=== PATIENT | female | born 1945 | race Caucasian/White ===

== ENCOUNTER → 2024-08-07 11:58 | Outpatient (REF) | payer MEDICARE, MEDICAID, SELFPAY | LOC: WDC 11:58 | PROVIDERS: ATTENDING PHYSICIAN Internal Medicine | DX: Z12.31 Encounter for screening mammogram for malignant neoplasm of breast (principal) | CPT/HCPCS: 77063; 77067 ==

== ENCOUNTER 2024-09-09 15:49 | Emergency (ER) | payer MEDICARE, MEDICAID, SELFPAY ==
[2024-09-09 16:00] VITALS: BP 127/70
[2024-09-09 16:10] VITALS: BMI 21.5
[2024-09-09 16:29] LABS: % Basophils 0.5 % (0-2); % Eosinophils 0.9 % (0-6); % Immature Granulocytes 0.8 % (0-0.5); % Lymphocytes 19.6 % (20.5-51.1); % Monocytes 10.7 % (1.7-9.3); % Neutrophils 67.5 % (42.2-75.2); Absolute Basophils 0.1 10^3/uL (0-0.2); Absolute Eosinophils 0.1 10^3/uL (0-0.7); Absolute Immature Granulocytes 0.1 10^3/uL (0-0.05); Absolute Lymphocytes 1.9 10^3/uL (1.2-3.4); Absolute Monocytes 1.1 10^3/uL (0.1-0.6); Absolute Neutrophils 6.6 10^3/uL (1.4-6.5); Hemoglobin 10.9 g/dL (12.0-16.0); Mean Corpuscular Hgb 31.2 pg (27.0-31.0); Mean Corpuscular Volume 94.6 fL (81.0-99.0); Mean Platelet Volume 9.6 fL (7.4-10.4); Nucleated Red Blood Cells % 0 %; Platelet Count 336 10^3/uL (130-400); Red Blood Cell Count 3.49 10^6/uL (4.20-5.40); Red Cell Dist. Width 13.5 % (11.5-14.5); White Blood Cell Count 9.8 10^3/uL (4.8-10.8)
[2024-09-09 16:44] LABS: ALT (SGPT) 32 U/L (0-35); AST (SGOT) 23 U/L (14-36); Albumin 4.2 g/dl (3.5-5.0); Alkaline Phosphatase 95 U/L (38-126); Blood Urea Nitrogen 56 mg/dl (7-17); Carbon Dioxide 25 mmol/L (22-30); Chloride 102 mmol/L (98-107); Estimated Creatinine Clearance 33 ml/min; Glucose 106 mg/dl (70-99); Potassium 4.9 mmol/L (3.5-5.1); Sodium 140 mmol/L (135-145); Total Bilirubin < 0.1 mg/dl (0.2-1.3); Total Protein 6.7 g/dl (6.3-8.2); eGFR 57.66
[2024-09-09 16:52] LABS: NT-proBNP 89.1 pg/ml
[2024-09-09 17:00] VITALS: BP 93/64
[2024-09-09] MEDS: NSS 250 IV (17:30)
--- NOTE | 2024-09-09 17:38 | ED.GENMED ---
History of Present Illness
General
Chief Complaint: Swelling
Source: patient
Exam Limitations: none
Time Seen by Provider: 09/09/24 15:59
Nursing documentation reviewed up to this point in time: agreed with
History of Present Illness
History of Present Illness:
Patient with history of mental retardation, presents to the emergency department from nursing home, accompanied by her caregiver, secondary to depressed mental status along with low blood pressure this afternoon. However, at the time of evaluation
ED, patient is alert and awake, without any complaints. Caregiver confirms that patient currently is near her baseline mental status. Caregiver has known the patient for 12 years. Denies recent illness. Denies recent change in medications or
diet. In addition, caregiver reports increased lower leg and foot swelling, despite taking Lasix every other day. However, patient denies any shortness of breath, nor any weight gain, confirmed by caregiver. Patient has appointment with her
primary care physician tomorrow afternoon. Of note, caregiver states that patient has not been eating well, i.e. eating on a regular basis. In addition, patient does not drink much water during the day, which has always been challenging.
Past History
Past History
ED Past Medical History: Hypercholesterolemia and Other (Mental retardation)
ED Past Surgical History: Other (unknown)
Social History
Tobacco: Non-smoker
Alcohol: None
Drug: None
Living: other (shelter)
Review of Systems
Review of Systems
Allergies reviewed?: Yes
All Other Systems: ROS reviewed and negative except as documented in HPI and ROS
Constitutional: Reports no symptoms
EENT: Reports no symptoms
Respiratory: Reports no symptoms
Cardiac: Reports no symptoms
ABD/GI: Reports no symptoms
Musculoskeletal: Reports edema
Skin: Reports no symptoms
Neurological: Reports other (depressed mental status)
Phy Exam
Physical Exam
Physical Exam:
Physical Exam
General: no apparent distress, not acutely ill. afebrile
Head: nc/at. eomi
Neck: supple. no meningeal signs.
Heart: s1/s2 regular rate and rhythm, no murmur. equal radial pulses.
Lungs: no acute respiratory distress. clear bilaterally
Abdomen: normal bowel sounds. not tender.
Neuro: alert and oriented. no focal neurological deficits
Skin: no rash
Psychiatric: well kept. interactive and cooperative
Extremities: no edema. no calf tenderness.
Scores
Heart Failure Risk
Heart Failure Risk Score: Not Applicable
Course
Orders/Labs/Results
Orders:
Orders
09/09/24 16:13
Electrocardiogram (*1) Urgent
Reason for Study: Chest Pain
Cardiac Monitoring- Treatment ONCE
EKG- Treatment ONCE
IV Insert/Care/Rem.- Treatment PRN
09/09/24 16:20
Complete Blood Count/With Diff Urgent
Comprehensive Metabolic Panel Urgent
Pro-BNP [NT-proBNP] Urgent
09/09/24 17:12
0.9% Sodium Chloride 250 ml [Nss] 250 ml IV BOLUS
Abnormal Lab Results
09/09/24
16:20
RBC 3.49 L 10^6/uL
(4.20-5.40)
Hgb 10.9 L g/dL
(12.0-16.0)
Hct 33.0 L %
(37.0-47.0)
MCH 31.2 H pg
(27.0-31.0)
Abs Immat Gran (auto) 0.1 H 10^3/uL
(0-0.05)
Absolute Neuts (auto) 6.6 H 10^3/uL
(1.4-6.5)
Absolute Monos (auto) 1.1 H 10^3/uL
(0.1-0.6)
Immature Gran % 0.8 H %
(0-0.5)
Lymphocytes % 19.6 L %
(20.5-51.1)
Monocytes % 10.7 H %
(1.7-9.3)
BUN 56 H mg/dl
(7-17)
Glucose 106 H mg/dl
(70-99)
Total Bilirubin < 0.1 L mg/dl
(0.2-1.3)
09/09/24 16:20
09/09/24 16:20
Vital Signs
Initial and Last Documented VS:
Initial Vital Signs
Temp Pulse Resp BP Pulse Ox
98.7 F 82 16 127/70 97
09/09/24 16:00 09/09/24 16:00 09/09/24 16:00 09/09/24 16:00 09/09/24 16:00
Last Documented Vital Signs
Temp Pulse Resp BP Pulse Ox
98.7 F 90 21 115/67 98
09/09/24 16:00 09/09/24 18:30 09/09/24 18:30 09/09/24 18:01 09/09/24 18:30
MDM/Problems Addressed
MDM/Problems Addressed:
Patient with an unremarkable workup in ED, and remains alert, awake, and hemodynamically stable during extended course of observation ED. History and exam concerning for possible mild dehydration, causing patient's presenting symptoms. Otherwise,
patient does not appear to be in any distress.
Pt given IVF and meal, with much improved overall appearance. Pt has become more alert and conversation. Caregiver states that patient is back to her baseline mental status.
Patient already has an appointment with PMD tomorrow, with whom she will follow-up as an outpatient.
*Critical Care Note
Total Time (30-74mins, 75-104mins- exclusive of procedures): Not Applicable
ED Attending Note
-
Portions of this chart may have been created with voice recognition software.� Occasional wrong word or��sound alike� substitutions may have occurred due to the inherent limitations of voice recognition software.
Discharge Plan
Departure
Patient Disposition: Home (Routine Discharge)
Date of Disposition: 09/09/24
Time of Disposition: 18:34
Patient with high blood pressure during this ER visit?: Yes
Condition: Good
Discharge Problem:
Dehydration, Leg swelling
Instructions: Dependent Edema (DC), Dehydration, Adult ED
Prescriptions:
No Action
calcium carbonate [Antacid (calcium carbonate)] 1 TABLET tablet,chewable
1,000 mg PO QPM
One Daily Women 50 Plus 1 EACH tablet
1 ea PO DAILY
loperamide 2 MG capsule
4 mg PO PRN PRN (Reason: loose stool)
Patient Comments:
4mg after first loose stool, then 2mg after each subsequent stool-max 8/24hours
ketoconazole 1 APPLIC cream
1 applic topical HS
Patient Comments:
apply soles, sides of feet
Triple Antibiotic 1 EACH ointment in packet
1 ea TP TID PRN (Reason: cuts, abrasions)
cholecalciferol (vitamin D3) [Vitamin D3] 2,000 UNIT capsule
2,000 unit PO DAILY
carbamazepine 300 mg Capsule, Er Multiphase 12 Hr
300 mg PO BID
docosanol 10 % Cream
1 applic TOPICAL ONCE PRN (Reason: cold sore)
guaifenesin [Siltussin SA] 100 mg/5 mL Liquid
200 mg PO Q6H PRN (Reason: cough)
acetaminophen [Mapap Arthritis Pain] 650 mg Tablet Extended Release
650 mg PO DAILY
quinapril 10 mg Tablet
10 mg PO DAILY
famotidine 20 mg Tablet
20 mg PO BID
furosemide [Lasix] 20 mg Tablet
20 mg PO Q OTHER DAY
Peroxyl 1.5 % Solution
10 ml MUCOUS MEMBRANE DAILY
Rx Instructions:
rinse or wipe teeth with cotton ball
rosuvastatin 20 mg Tablet
20 mg PO DAILY
Prolia 60 mg/mL Syringe
60 mg SC [id number]
Fiber One
1 tab PO DAILY
Patient Comments:
brownie
acetaminophen 325 MG tablet
650 mg PO Q4H PRN (Reason: fever/pain)
polyethylene glycol 3350 [Miralax] 17 gram Powder In Packet
17 g PO DAILY PRN (Reason: No BM x 3 days )
Referrals:
UNKNOWN - PT NOT,INTERVIEWE [Unknown Provider] -
Activity Restrictions/Additional Instructions:
As discussed, please follow-up with your primary care physician tomorrow, as scheduled for further evaluation and treatment.
Interventions
Interventions:
*Risk Screen - Suicide Last Done: 09/09/24 16:12
*General Assessment Last Done: 09/09/24 16:11
*Neglect/Abuse Screening Last Done: 09/09/24 16:12
ED- Fall Risk Assessment Last Done: 09/09/24 16:12
*ED COVID-19 Vaccine History Last Done: 09/09/24 16:11
*Nursing Disposition Last Done: 09/09/24 18:47
ED- Cardiac Assessment Last Done: 09/09/24 16:33
ED- Pulmonary Assessment Last Done: 09/09/24 16:33
ED-Skin Assessment Last Done: 09/09/24 16:33
Discharge Date and Time
Discharge Date/Time: 09/09/24 18:47
Print Language: CHINESE
[2024-09-09 18:01] VITALS: BP 115/67
== END 2024-09-09 18:47 | disposition home or self-care (01) ==
LOC: EMR 15:49
PROVIDERS: EMERGENCY PHYSICIAN Emergency Medicine; FAMILY PHYSICIAN Internal Medicine
DX: E86.0 Dehydration (principal); R22.40 Localized swelling, mass and lump, unspecified lower limb; F79 Unspecified intellectual disabilities; E78.00 Pure hypercholesterolemia, unspecified; Z79.899 Other long term (current) drug therapy
CPT/HCPCS: 99284; 96360; 80053; 83880; 85025; 93005

== ENCOUNTER 2024-12-19 11:39 | Emergency (ER) | payer MEDICARE, MEDICAID, SELFPAY ==
[2024-12-19 11:42] VITALS: BP 126/74
--- NOTE | 2024-12-19 13:44 | ED.MUSCINJ ---
HPI-Injury
General
Chief Complaint: Musculo-Skeletal Complaint
Source: patient
Exam Limitations: none
Time Seen by Provider: 12/19/24 13:31
History of Present Illness-Injury
Initial Injury comments:
78-year-old female with developmental delay presents from detention with caregiver who states the patient woke up this morning complaining of inner shoulder. Patient is very poor historian. It was unclear whether her discomfort was in her
shoulder or chest at the time. Currently the patient denies any pain and wants to go home. She recently had an appointment with the cardiology office and everything checked out well. No known injury.
Past History
Past History
ED Past Medical History: Hypercholesterolemia and Other (Mental retardation)
ED Past Surgical History: Other (unknown)
Social History
Tobacco: Non-smoker
Alcohol: None
Drug: None
Living: other (detention)
Phy Exam
Physical Exam
Physical Exam:
General: Well-appearing nontoxic female no acute respiratory distress
HEENT: Normocephalic atraumatic
Heart: Regular rate and rhythm
Lungs: Clear no wheeze
Musculoskeletal exam: Bilateral shoulders are nontender good range of motion passively
Extremities: No cyanosis
Skin: Warm no rash
Injury Course
Orders/Labs/Results
Orders:
Orders
12/19/24 11:45
Shoulder, Right 2 Views [CR Shoulder - Right Min 2 View] Urgent
Comment:
Reason For Exam: pain
MDM/Problems Addressed
Differential Diagnosis Includes:
Patient brought here for potential shoulder pain. Dorsalis symptoms are vague. Patient does not have any symptoms currently and expresses her desire to go home. Offered EKG and workup for cardiac abnormalities however patient declined and states
she feels better and wants home. Discussed with caregiver. She is acting at her baseline currently. Will hold off on any further workup I did review x-ray of the right shoulder which was negative for
*Critical Care Note
Total Time (30-74mins, 75-104mins- exclusive of procedures): Not Applicable
ED Attending Note
-
Portions of this chart may have been created with voice recognition software.� Occasional wrong word or��sound alike� substitutions may have occurred due to the inherent limitations of voice recognition software.
Discharge Plan
Departure
Patient Disposition: Home (Routine Discharge)
Date of Disposition: 12/19/24
Time of Disposition: 13:48
Patient with high blood pressure during this ER visit?: No
Discharge Problem:
Acute shoulder pain
Prescriptions:
No Action
calcium carbonate [Antacid (calcium carbonate)] 1 TABLET tablet,chewable
1,000 mg PO QPM
One Daily Women 50 Plus 1 EACH tablet
1 ea PO DAILY
loperamide 2 MG capsule
4 mg PO PRN PRN (Reason: loose stool)
Patient Comments:
4mg after first loose stool, then 2mg after each subsequent stool-max 8/24hours
ketoconazole 1 APPLIC cream
1 applic topical HS
Patient Comments:
apply soles, sides of feet
Triple Antibiotic 1 EACH ointment in packet
1 ea TP TID PRN (Reason: cuts, abrasions)
cholecalciferol (vitamin D3) [Vitamin D3] 2,000 UNIT capsule
2,000 unit PO DAILY
carbamazepine 300 mg Capsule, Er Multiphase 12 Hr
300 mg PO BID
docosanol 10 % Cream
1 applic TOPICAL ONCE PRN (Reason: cold sore)
guaifenesin [Siltussin SA] 100 mg/5 mL Liquid
200 mg PO Q6H PRN (Reason: cough)
acetaminophen [Mapap Arthritis Pain] 650 mg Tablet Extended Release
650 mg PO DAILY
quinapril 10 mg Tablet
10 mg PO DAILY
famotidine 20 mg Tablet
20 mg PO BID
furosemide [Lasix] 20 mg Tablet
20 mg PO Q OTHER DAY
Peroxyl 1.5 % Solution
10 ml MUCOUS MEMBRANE DAILY
Rx Instructions:
rinse or wipe teeth with cotton ball
rosuvastatin 20 mg Tablet
20 mg PO DAILY
Prolia 60 mg/mL Syringe
60 mg SC [id number]
Fiber One
1 tab PO DAILY
Patient Comments:
brownie
acetaminophen 325 MG tablet
650 mg PO Q4H PRN (Reason: fever/pain)
polyethylene glycol 3350 [Miralax] 17 gram Powder In Packet
17 g PO DAILY PRN (Reason: No BM x 3 days )
Referrals:
Ave Gutierrez DO [Family Provider] -
Activity Restrictions/Additional Instructions:
Please return here for worsening symptoms otherwise follow-up with your doctor
Interventions
Interventions:
*Risk Screen - Suicide Last Done: 12/19/24 11:42
*Neglect/Abuse Screening Last Done: 12/19/24 11:42
Discharge Date and Time
Print Language: POLISH
== END 2024-12-19 15:16 | disposition home or self-care (01) ==
LOC: EMR 11:39
PROVIDERS: EMERGENCY PHYSICIAN Emergency Medicine; FAMILY PHYSICIAN Internal Medicine
DX: M25.511 Pain in right shoulder (principal); E78.00 Pure hypercholesterolemia, unspecified; F79 Unspecified intellectual disabilities
CPT/HCPCS: 99283; 73030

== ENCOUNTER → 2025-02-15 13:04 | Outpatient (REF) | payer MEDICARE, MEDICAID, SELFPAY | LOC: HWRAD 13:04 | PROVIDERS: ATTENDING PHYSICIAN Internal Medicine Endocrinology, Diabetes & Metabolism; FAMILY PHYSICIAN Internal Medicine | DX: M81.0 Age-related osteoporosis without current pathological fracture (principal) | CPT/HCPCS: 77080 ==

== ENCOUNTER → 2025-04-08 12:40 | Outpatient (REF) | payer MEDICARE, MEDICAID, SELFPAY | LOC: RCS 12:40 | PROVIDERS: ATTENDING PHYSICIAN Internal Medicine Cardiovascular Disease; FAMILY PHYSICIAN Internal Medicine | DX: R60.0 Localized edema (principal) | CPT/HCPCS: 93306 ==

== ENCOUNTER → 2025-08-10 13:35 | Outpatient (REF) | payer MEDICARE, MEDICAID, SELFPAY | LOC: WDC 13:35 | PROVIDERS: ATTENDING PHYSICIAN Internal Medicine | DX: Z12.31 Encounter for screening mammogram for malignant neoplasm of breast (principal) | CPT/HCPCS: 77063; 77067 ==